=== PATIENT | female | born 1950 | race Caucasian/White ===

== ENCOUNTER 2018-09-01 13:24 | Inpatient (IN) | payer OTHER ==
[2018-09-01 14:05] VITALS: BMI 31.7
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
[2018-09-01 14:28] LABS: VENOUS PC02 45.6 mmHg (38-52); VENOUS PH 7.12 (7.32-7.42)
[2018-09-01] MEDS ORDERED: VANCOMYCIN 1,000 MG in DEXTROSE 5%-WATER - 250 ML IVPB ONE (14:28)
[2018-09-01] MEDS ORDERED: PIPERACILLIN/TAZOB 4.5 GM 4.5 GM in DEXTROSE 5%-WATER - 100 ML IVPB ONE (14:28)
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
[2018-09-01] MEDS ORDERED: AZITHROMYCIN IVPB 500 MG in DEXTROSE 5%-WATER - 250 ML IVPB ONE (14:29)
[2018-09-01 14:30] LABS: VENOUS PO2 44.8 mmHg (28-48)
[2018-09-01] MEDS ORDERED: KETAMINE HCL 200 MG/20 ML VIAL IVPUSH ONE (14:30)
[2018-09-01] MEDS ORDERED: FENTANYL INJECTION 500 MCG in DEXTROSE 5%-WATER - 90 ML IVPB SCH (14:30)
[2018-09-01] MEDS ORDERED: LACTATED RINGERS SOLUTION 1000 ML INFUS.BAG IV ONE (14:31)
[2018-09-01] MEDS ORDERED: SODIUM CHLORIDE 1,000 ML IV STA ×2 (14:31)
[2018-09-01] MEDS ORDERED: ROCURONIUM BROMIDE 50 MG/5 ML VIAL IVPUSH ONE (14:31)
[2018-09-01 14:32] LABS: BASO % 0.1 % (0-2.0); HEMATOCRIT 40.4 % (32.4-45.2); HEMOGLOBIN 12.7 GM/dL (10.7-15.3); LYMPH % 10.7 % (8-40); MCH 30.3 pg (25.7-33.7); MCHC 31.4 g/dl (32.0-36.0); MEAN CELL VOLUME 96.5 fl (80-96); MEAN PLT VOLUME 8.7 fl (7.5-11.1); MONO % 1.2 % (3.8-10.2); PLATELET COUNT 93 K/MM3 (134-434); RBC 4.19 M/mm3 (3.60-5.2); WHITE BLOOD COUNT 7.6 K/mm3 (4.0-10.0)
--- NOTE | 2018-09-01 14:35 | EKG ---
Test Reason : Blood Pressure : / mmHG Vent. Rate : 116 BPM Atrial Rate : 116 BPM P-R Int : 152 ms QRS Dur : 074 ms QT Int : 348 ms P-R-T Axes : 065 016 036 degrees QTc Int : 483 ms SINUS TACHYCARDIA OTHERWISE NORMAL ECG NO PREVIOUS ECGS AVAILABLE Confirmed by Pierce Vann ([id number]) on 09/01/2018 2:35:09 PM Referred By: Confirmed By:Pierce Vann
[2018-09-01] MEDS ORDERED: PIPERACILLIN/TAZOB 4.5 GM 4.5 GM/100 ML BAG IVPB ONE (14:40)
[2018-09-01] MEDS ORDERED: AZITHROMYCIN IVPB 500 MG/250 ML BAG IVPB ONE (14:40)
[2018-09-01] MEDS ORDERED: VANCOMYCIN 1 GRAM (PRE-DOCKED) 1,000 MG/250 ML BAG IVPB ONE (14:41)
[2018-09-01 14:51] LABS: ALBUMIN 2.8 g/dl (3.4-5.0); ALK PHOS 91 U/L (45-117); ANION GAP 19 MMOL/L (8-16); BILIRUBIN,TOTAL 0.7 mg/dL (0.2-1); BLOOD UREA NITROGEN 27 mg/dL (7-18); CALCIUM 7.7 mg/dL (8.5-10.1); CHLORIDE 102 mmol/L (98-107); CO2 15 mmol/L (21-32); CREATININE 3.5 mg/dL (0.55-1.3); GLUCOSE,RANDOM 127 mg/dL (74-106); POTASSIUM 4.6 mmol/L (3.5-5.1); SGOT/AST 88 U/L (15-37); SGPT/ALT 26 U/L (13-61); SODIUM 136 mmol/L (136-145); TOT PROT 7.7 g/dl (6.4-8.2)
[2018-09-01] MEDS ORDERED: DOPAMINE 400 MG/D5W - 400,000 MCG/250 ML INFUS.BAG IVPB ONE (15:01)
[2018-09-01] MEDS ORDERED: MAGNESIUM SULF 50% (8.12 MEQ/2 ML-1 GM VIAL) ONE (15:10)
[2018-09-01 15:26] LABS: INR 1.8 (0.83-1.09); PROTHROMBIN TIME (PATIENT) 21.4 SEC (9.7-13.0)
[2018-09-01 15:28] LABS: ACTIVATED PTT 49.5 SECONDS (25.2-36.5)
[2018-09-01] MEDS ORDERED: EPINEPHrine 1:10,000 (P-F SYR) 1 MG/10 ML DISP.SYRIN ONE ×2 (15:32→19:11)
[2018-09-01 15:59] LABS: ARTERIAL BLOOD GAS PCO2 56.2 mmHg (35-45)
[2018-09-01 16:02] LABS: ALLENS TEST POSITIVE; ARTERIAL BLOOD GAS PO2 74.2 mmHg (80-100)
[2018-09-01 16:03] LABS: ARTERIAL BLOOD GAS pH 6.89 (7.35-7.45)
[2018-09-01] MEDS ORDERED: SODIUM BICARBONATE 8.4% 50 MEQ/50 ML VIAL ONE (16:05)
[2018-09-01] MEDS ORDERED: SODIUM BICARBONATE 8.4% 50 MEQ/50 ML DISP.SYRIN IVPUSH ONE (16:11)
[2018-09-01 16:39] LABS: URINE APPEARANCE CLOUDY; URINE BILIRUBIN NEGATIVE (<2.0 mg/dL); URINE COLOR AMBER; URINE GLUCOSE (UA) 2+ (NEGATIVE); URINE KETONE NEGATIVE (NEGATIVE); URINE LEUK ESTERASE NEGATIVE (NEGATIVE); URINE NITRITE NEGATIVE (NEGATIVE); URINE PROTEIN 3+ (NEGATIVE); URINE UROBILINOGEN NEGATIVE mg/dL (0.2-1.0)
[2018-09-01 16:44] LABS: ARTERIAL BLD GAS O2 SATURATION 87.2 % (90-98.9); ARTERIAL BLOOD GAS PCO2 56.5 mmHg (35-45); ARTERIAL BLOOD GAS PO2 75.6 mmHg (80-100)
[2018-09-01 16:45] LABS: ALLENS TEST POSITIVE; CARBOXYHEMOGLOBIN 0.7 gm% (0.5-2.0)
[2018-09-01 16:46] LABS: ARTERIAL BLOOD GAS BASE EXCESS -13.9 meq/l (-2-2); ARTERIAL BLOOD GAS pH 7.08 (7.35-7.45)
[2018-09-01 16:49] LABS: EPI CELLS MODERATE /HPF (FEW); URINE HYALINE CAST 77 /lpf; URINE MUCUS FEW
[2018-09-01] MEDS ORDERED: PIPERACILLIN/TAZOB 2.25 GM 2.25 GM in DEXTROSE 5%-WATER - 50 ML IVPB SCH (18:00)
[2018-09-01 18:02] VITALS: TEMP 100.4
[2018-09-01] MEDS ORDERED: MIDAZOLAM HCL 5 MG/1 ML Single Dose Vial ONE (18:05)
[2018-09-01] MEDS ORDERED: NOREPINEPHRINE BITARTRATE 4 MG/4 ML ML IV ONE ×3 (18:46→20:21)
[2018-09-01] MEDS ORDERED: MIDAZOLAM HCL 2 MG/2 ML SINGLE DOSE VIAL IVPUSH ONE ×2 (18:55→21:29)
[2018-09-01] MEDS ORDERED: ROCURONIUM BROMIDE 50 MG/5 ML VIAL IV ONE ×2 (18:56→21:32)
[2018-09-01] MEDS ORDERED: CALCIUM GLUCONATE 10% - 1,000 MG/10 ML VIAL ONE (19:09)
[2018-09-01] MEDS ORDERED: CALCIUM CHLORIDE 1 GM/10 ML *DISP.SYRIN ONE (19:11)
[2018-09-01] MEDS ORDERED: SODIUM BICARBONATE 8.4% - 50 ML ONE (19:11)
[2018-09-01 19:38] LABS: N-TERMINAL BNP 56925.1 pg/ml (5-125)
[2018-09-01] MEDS ORDERED: VASOPRESSIN 20 UNITS/ML VIAL IV ONE ×2 (19:46→19:49)
--- NOTE | 2018-09-01 19:51 | PROC ---
Central Line Insertion Indication: Vasopressor Risks and Benefits Explained: Yes Consent on Chart: No (verbal from , emergent) Central Line: Triple Lumen Catheter Anesthesia: 1% Lidocaine Sterile Technique: Yes Ultrasound Guided Assistance: Yes Position: Right Internal Jugular Post Insertion: Yes: Bilateral Breath Sounds, Bilateral Chest Expansion, Chest X-Ray Ordered Sterile Dressing Applied: Yes
[2018-09-01 19:59] LABS: ARTERIAL BLOOD GAS BASE EXCESS -8.4 meq/l (-2-2); ARTERIAL BLOOD GAS PCO2 36.4 mmHg (35-45); ARTERIAL BLOOD GAS pH 7.29 (7.35-7.45)
[2018-09-01] MEDS ORDERED: VASOPRESSIN 50 UNITS in SODIUM CHLORIDE 97.5 ML IVPB SCH (20:00)
[2018-09-01] MEDS ORDERED: DOBUTAMINE 250 MG/D5W - 250,000 MCG/250 ML INFUS.BAG IV SCH (20:00)
[2018-09-01 20:04] LABS: ARTERIAL BLD GAS O2 SATURATION 99.6 % (90-98.9)
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
[2018-09-01 20:14] LABS: ARTERIAL BLOOD GAS BASE EXCESS -8.1 meq/l (-2-2); ARTERIAL BLOOD GAS PCO2 35.3 mmHg (35-45)
[2018-09-01 20:16] LABS: ARTERIAL BLD GAS O2 SATURATION 99.7 % (90-98.9)
[2018-09-01] MEDS ORDERED: PIPERACILLIN/TAZOBACTAM 2.25 GM VIAL IVPB ONE (20:23)
[2018-09-01] MEDS ORDERED: DEXTROSE 5%-WATER - 50 ML IVPB ONE (20:24)
[2018-09-01] MEDS ORDERED: HEPARIN NA (PORCINE) 5,000 UNITS/ML 1ML VIAL IVPUSH ONE (20:37)
[2018-09-01] MEDS ORDERED: DOPAMINE 400 MG/D5W - 400,000 MCG/250 ML INFUS.BAG IVPB SCH (20:45)
[2018-09-01] MEDS ORDERED: NOREPINEPHRINE BITARTRATE 4,000 MCG in DEXTROSE 5%-WATER - 496 ML IV SCH (20:45)
[2018-09-01 22:25] VITALS: BP 74/67; PULSE 113
[2018-09-02] MEDS ORDERED: PIPERACILLIN/TAZOB 2.25 GM 2.25 GM in DEXTROSE 5%-WATER - 50 ML IVPB SCH (18:00)
== END 2018-09-01 22:00 | disposition short-term general hospital (02) | DRG 871 ==
LOC: JER 13:24 → JERBED 17:49 → JICU 17:50
PROVIDERS: ADMIT Internal Medicine; ATTEND Internal Medicine
PROC: 5A1935Z Respiratory Ventilation, Less than 24 Consecutive Hours (ICD-10-PCS; principal; 2018-09-01)
PROC: 0BH17EZ Insertion of Endotracheal Airway into Trachea, Via Natural or Artificial Opening (ICD-10-PCS; 2018-09-01)
PROC: 05HM33Z Insertion of Infusion Device into Right Internal Jugular Vein, Percutaneous Approach (ICD-10-PCS; 2018-09-01)
PROC: B543ZZA Ultrasonography of Right Jugular Veins, Guidance (ICD-10-PCS; 2018-09-01)
DX: A41.9 Sepsis, unspecified organism (principal); J96.91 Respiratory failure, unspecified with hypoxia; I46.9 Cardiac arrest, cause unspecified; R65.21 Severe sepsis with septic shock; R19.7 Diarrhea, unspecified; I45.81 Long QT syndrome
CPT/HCPCS: 36415; 36600; 71045-TC-FY; 80053; 81003; 81015; 82375; 82803; 83050; 83605; 83880; 84484; 85025; 85610; 85730; 87040; 87086; 87186; 93005; 93010; 99285-25; J1250; J1644; J7030